=== PATIENT | male | born 1960 | race Caucasian/White ===

== ENCOUNTER 2016-12-19 14:15 | Emergency (ER) | payer SELFPAY ==
[2016-12-19 14:44] VITALS: BP 153/100; PULSE 109; TEMP 99; BMI 28.5
--- NOTE | 2016-12-19 14:51 | PDOC ---
History of Present Illness - General History Source: Patient Exam Limitations: No Limitations - History of Present Illness Initial Comments: 12/19/16 14:54 The patient is a 56 year old male with a significant past medical history of type II diabetes, who presents to the ED with an abscess over the scrotum. Patient states the boil first appeared 10 days ago, and is complaining of increasing pain in the area. Denies contact, shaving, trauma. Denies fever, chills, nausea, vomiting. <Az Hoskins - Last Filed: 12/19/16 14:54> - General History Source: Patient Exam Limitations: No Limitations <Scott Waller - Last Filed: 12/19/16 15:20> - General Chief Complaint: Abscess Boil Stated Complaint: ABSCESS Time Seen by Provider: 12/19/16 14:26 Past History <Az Hoskins - Last Filed: 12/19/16 14:54> - Past Medical History Diabetes: Yes (NO MEDS) - Psycho/Social/Smoking Cessation Hx Anxiety: No Suicidal Ideation: No Smoking History: Current every day smoker Have you smoked in the past 12 months: Yes Number of Cigarettes Smoked Daily: 40 Information on smoking cessation initiated: Yes 'Breaking Loose' booklet given: 02/07/16 Hx Alcohol Use: No Drug/Substance Use Hx: No Substance Use Type: None <Scott Waller - Last Filed: 12/19/16 15:20> - Past Medical History Allergies/Adverse Reactions: Allergies Allergy/AdvReac Type Severity Reaction Status Date / Time No Known Allergies Allergy Verified 12/19/16 14:18 Home Medications: Ambulatory Orders Sulfamethoxazole/Trimethoprim [Bactrim Ds -] 1 tab PO BID #14 tablet 12/19/16 Review of Systems - Review of Systems Able to Perform ROS?: Yes Comments:: 12/19/16 14:55 GENERAL/CONSTITUTIONAL: No fever or chills. No weakness. HEAD, EYES, EARS, NOSE AND THROAT: No change in vision. No ear pain or discharge. No sore throat. CARDIOVASCULAR: No chest pain or shortness of breath. RESPIRATORY: No cough, wheezing, or hemoptysis. GASTROINTESTINAL: No nausea, vomiting, diarrhea or constipation. GENITOURINARY: No dysuria, frequency, or change in urination. MUSCULOSKELETAL: No joint or muscle swelling or pain. No neck or back pain. SKIN: boil over scrotum NEUROLOGIC: No headache, vertigo, loss of consciousness, or change in strength/ sensation. ENDOCRINE: No increased thirst. No abnormal weight change. HEMATOLOGIC/LYMPHATIC: No anemia, easy bleeding, or history of blood clots. ALLERGIC/IMMUNOLOGIC: No hives or skin allergy. <Az Hoskins - Last Filed: 12/19/16 14:54> *Physical Exam - Vital Signs Last Vital Signs Temp Pulse Resp BP Pulse Ox 99.0 F 109 H 18 153/100 96 12/19/16 14:16 12/19/16 14:16 12/19/16 14:16 12/19/16 14:16 12/19/16 14:16 - Physical Exam Comments: 12/19/16 14:55 GENERAL: Awake, alert, and fully oriented, in no acute distress HEAD: No signs of trauma EYES: PERRLA, EOMI, sclera anicteric, conjunctiva clear ENT: Auricles normal inspection, hearing grossly normal, nares patent, oropharynx clear without exudates. Moist mucosa NECK: Normal ROM, supple, no lymphadenopathy, JVD, or masses LUNGS: Breath sounds equal, clear to auscultation bilaterally. No wheezes, and no crackles HEART: Regular rate and rhythm, normal S1 and S2, no murmurs, rubs or gallops ABDOMEN: Soft, nontender, normoactive bowel sounds. No guarding, no rebound. No masses EXTREMITIES: Normal range of motion, no edema. No clubbing or cyanosis. No cords, erythema, or tenderness NEUROLOGICAL: Cranial nerves II through XII grossly intact. Normal speech, normal gait SKIN: 3cm x 3cm abscess induration with overlying skin irritation. Warm, Dry, normal turgor. <Az Hoskins - Last Filed: 12/19/16 14:54> - Vital Signs Last Vital Signs Temp Pulse Resp BP Pulse Ox 99.0 F 109 H 18 153/100 96 12/19/16 14:16 12/19/16 14:16 12/19/16 14:16 12/19/16 14:16 12/19/16 14:16 <Scott Waller - Last Filed: 12/19/16 15:20> ED Treatment Course - RADIOLOGY Radiology Studies Ordered: Category Date Time Status SCROTUM AND CONTENTS US [US] Stat Ultrasound 12/19/16 14:39 Ordered <Scott Waller - Last Filed: 12/19/16 15:20> Medical Decision Making - Medical Decision Making 12/19/16 15:06 A portion of this note was documented by scribe services under my direction. I have reviewed the details of the note, within reason, and agree with the documentation with the following case summary and management plan written by me. Patient treated in the ED. Nursing notes are reviewed and incorporated into the medical decision-making. Vital signs reviewed. Peripheral IV access obtained by the nurse, laboratory studies are drawn and sent, reviewed and interpreted by myself. Vital Signs Temp Pulse Resp BP Pulse Ox 99.0 F 109 H 18 153/100 96 12/19/16 14:16 12/19/16 14:16 12/19/16 14:16 12/19/16 14:16 12/19/16 14:16 56 year old male with no past medical history presents with left sided scrotal abscess. Reported that the boil had occurred ~10 days ago and has been persisted and increasing in size. Denies fevers. Denies dysuria. Denies injury. Came into the ED for further evaluation. I had initially ordered a scrotal ultrasound. However, after waiting for the ultrasound, the patient prefers to go home and see his urololgist tomorrow. He has scheduled an appointment with DR. Raymundo. Given that the symptoms have been persistent for 10 days, will initiate bactrim and allow the patient to see the urologist tomorrow. Return precautions were given if he was unable to see them. I discussed the physical exam findings, ancillary test results and final diagnoses with the patient. I answered all of the patient's questions. The patient was satisfied with the care received and felt comfortable with the discharge plan and treatment plan. The patient will call their primary care physician within 24 hours to arrange follow-up and will return to the Emergency Department with any new, persistant or worsening symptoms. <Scott Waller - Last Filed: 12/19/16 15:20> *DC/Admit/Observation/Transfer - Attestations Scribe Attestion: 12/19/16 14:55 Documentation prepared by Az Hoskins, acting as medical surgical tech for Scott Waller MD, MD. <Az Hoskins - Last Filed: 12/19/16 14:54> - Discharge Dispostion Admit: No <Scott Waller - Last Filed: 12/19/16 15:20> Diagnosis at time of Disposition: Scrotal pain - Discharge Dispostion Disposition: HOME Condition at time of disposition: Good - Prescriptions Prescriptions: Sulfamethoxazole/Trimethoprim [Bactrim Ds -] 1 tab PO BID #14 tablet - Referrals Referrals: Leroy Raymundo MD., [Staff Physician] - Dory Contreras MD [Staff Physician] - Ryan Cantu MD [Staff Physician] - - Patient Instructions Printed Discharge Instructions: DI for Scrotal Abscess Additional Instructions: At this time, you have deferred the ultrasound at this time. Given that the symptoms have been going on for over a week and a half, we will initiate antibiotics, Bactrim 1 tablet every 12 hours for the next week. It is very very important that you follow-up with urologist either today or tomorrow. Please call schedule appointment. You may take 600 mg of ibuprofen every 6 hours needed for pain. If you're unable to secure urologist, please return to the ED for further evaluation.
[2016-12-19] MEDS ORDERED: IBUPROFEN 600 MG TABLET (FP) PO ONE ×2 (15:02→15:08)
[2016-12-19] MEDS ORDERED: SULFAMETHOXAZOLE/TRIMETHOPRIM 800MG/160MG D.S. TABLET PO ONE (15:06)
[2016-12-19] MEDS ORDERED: SULFAMETHOXAZOLE/TRIMETHOPRIM 800MG/160MG D.S. TABLET ONE (15:08)
== END 2016-12-19 15:21 | disposition home or self-care (01) ==
LOC: FER 14:15
DX: N50.82 Scrotal pain (principal); E11.9 Type 2 diabetes mellitus without complications; F17.210 Nicotine dependence, cigarettes, uncomplicated
CPT/HCPCS: 99281-25

== ENCOUNTER 2017-04-23 19:18 | Emergency (ER) | payer SELFPAY ==
[2017-04-23 19:24] VITALS: BP 140/90; PULSE 82; TEMP 98.2; BMI 27.1
--- NOTE | 2017-04-23 19:47 | PDOC ---
History of Present Illness - General History Source: Patient Exam Limitations: No Limitations - History of Present Illness Initial Comments: 04/23/17 20:08 The patient 56 year old male, with significant past medical history of diabetes , who presents to the emergency room complaining of 5 days of an itchy, painful rash on his head. He noticed what he thought was a pimple on his head the day after getting a haircut. The rash started to spread over the top of his head over the past couple of days. He used T-gel shampoo and and Selsun blue without relief. Denies fever, chills, nausea, vomiting. Denies any rashes on his extremities or trunk. Denies recent illness. Allergies: none <Cely Hernandez - Last Filed: 04/23/17 20:24> <Nikki Nieto - Last Filed: 04/24/17 06:22> - General Chief Complaint: Pain, Acute Stated Complaint: RASH IN HEAD Time Seen by Provider: 04/23/17 19:30 Past History <Cely Hernandez - Last Filed: 04/23/17 20:24> - Past Medical History Diabetes: Yes (NO MEDS) - Psycho/Social/Smoking Cessation Hx Anxiety: No Suicidal Ideation: No Smoking History: Current every day smoker Have you smoked in the past 12 months: Yes Number of Cigarettes Smoked Daily: 40 Information on smoking cessation initiated: Yes 'Breaking Loose' booklet given: 02/07/16 Hx Alcohol Use: No Drug/Substance Use Hx: No Substance Use Type: None <Nikki Nieto - Last Filed: 04/24/17 06:22> - Past Medical History Allergies/Adverse Reactions: Allergies Allergy/AdvReac Type Severity Reaction Status Date / Time No Known Allergies Allergy Verified 04/23/17 19:20 Home Medications: Ambulatory Orders Cephalexin Monohydrate [Keflex -] 500 mg PO Q8H #15 capsule 04/23/17 Clobetasol Propionate [Clodan] 10 ml TP DAILY #118 ml 04/23/17 Review of Systems - Review of Systems Able to Perform ROS?: Yes Comments:: 04/23/17 20:08 CONSTITUTIONAL: Absent: fever, no chills, no fatigue EYES: Absent: visual changes ENT: Absent: ear pain, no sore throat CARDIOVASCULAR: Absent: chest pain, no palpitations RESPIRATORY: Absent: cough, no SOB GI: Absent: abdominal pain, no nausea, no vomiting, no constipation, no diarrhea GENITOURINARY: Absent: dysuria, no frequency, no hematuria MUSCULOSKELETAL: Absent: back pain, no arthralgia, no myalgia SKIN: Present: itchy painful rash on top of the head x5 days NEURO: Absent: headache <MaryCely - Last Filed: 04/23/17 20:24> *Physical Exam - Vital Signs Last Vital Signs Temp Pulse Resp BP Pulse Ox 98.2 F 82 18 140/90 97 04/23/17 19:21 04/23/17 19:21 04/23/17 19:21 04/23/17 19:21 04/23/17 19:21 - Physical Exam Comments: 04/23/17 20:24 GENERAL: The patient is awake, alert, and fully oriented, in no acute distress. ENT: Ears normal, nares patent, oropharynx clear without exudates. Moist mucous membranes. EXTREMITIES: Normal range of motion, no edema. No clubbing or cyanosis. No cords, erythema, or tenderness. NEUROLOGICAL: Cranial nerves II through XII grossly intact. Normal speech, normal gait. PSYCH: Normal mood, normal affect. SKIN: +6 scattered, mildly tender, erythematous, 1cm lesions of the bilateral aspects of the vertex of the scalp. Non fluctuant. No other lesions, open wounds present. No general erythema or edema of scalp. No posterior cervical lymphadenopathy. No other obvious rash present. <MaryCely - Last Filed: 04/23/17 20:24> - Vital Signs Last Vital Signs Temp Pulse Resp BP Pulse Ox 98.2 F 82 18 140/90 97 04/23/17 19:21 04/23/17 19:21 04/23/17 19:21 04/23/17 19:21 04/23/17 19:21 <Nikki Nieto - Last Filed: 04/24/17 06:22> ED Treatment Course - Medications Given in the ED: ED Medications Discontinued Medications Generic Name Dose Route Start Last Admin Trade Name Freq PRN Reason Stop Dose Admin Cephalexin HCl 500 mg 04/23/17 19:48 04/23/17 19:59 Keflex - PO 04/23/17 19:49 500 mg ONCE ONE Administration <Cely Hernandez - Last Filed: 04/23/17 20:24> Medical Decision Making - Medical Decision Making Documentation has been prepared under my direction and personally reviewed by me in its entirety. I attest that this documented accurately reflects all work, treatment, procedures and medical decision making performed by me. As noted above, this 56-year-old man without history of immunocompromise/wound healing problems/resistant organism colonization or infection presents with several scattered pruritic and uncomfortable crusted lesions of his scalp. There are on the lateral aspects of the vertex and started after he had a haircut. He did not think the started as insect bites. He has no previous history of multiple furuncles. He has 1 previous history of perianal abscess that it needed to be drained but no other abscesses or cellulitis. Patient states that he has been scratching the "scabs" from the lesions. There has been no significant amount of purulent discharge. He denies fever/chills or other symptoms suggestive of systemic infection. Exam as noted. Patient has multiple lesions consistent with furuncles of his scalp. Although the origin of these lesions is unclear, there is significant amount of erythema at the base of each one with mild to moderate tenderness. There is no evidence of fluctuance of any of the lesions or generalized scalp cellulitis . Patient will be treated with Keflex 500 mg now and prescription for 500 mg 3 times a day for 5 days will be issued to his pharmacy. In order to control the patient's pruritus, clobetasol shampoo should be used daily; prescription for this was also sent to his pharmacy. Patient does not have a spa assistant manager. He will be given Dr. Marita Welch's referral information. He should call her office tomorrow to make an appointment within the next 10 days. He should return to the ER if he has worsening pain/swelling/redness of his scalp or if he develops fever/chills. <Nikki Nieto - Last Filed: 04/24/17 06:22> *DC/Admit/Observation/Transfer - Attestations Scribe Attestion: 04/23/17 20:09 Documentation prepared by CALOS Dawson, acting as senior medical director for Nikki Nieto MD. <Cely Hernandez - Last Filed: 04/23/17 20:24> <GersonJohnNikki J - Last Filed: 04/24/17 06:22> Diagnosis at time of Disposition: Furuncle of scalp - Discharge Dispostion Disposition: HOME Condition at time of disposition: Stable - Prescriptions Prescriptions: Clobetasol Propionate [Clodan] 10 ml TP DAILY #118 ml Cephalexin Monohydrate [Keflex -] 500 mg PO Q8H #15 capsule - Referrals Referrals: Marita Welch [Staff Physician] - Call tomorrow - Patient Instructions Printed Discharge Instructions: Smoking Cessation, DI for Boils Additional Instructions: Keflex 500 mg 3 times a day for 5 days Clobetasol shampoo daily Bacitracin ointment daily to sores Call Dr. Welhc's(spa assistant manager) office tomorrow to arrange follow-up appointment within the next 10 days Follow-up with general doctor within one week Return to ER if you have increased swelling/pain/drainage from sores or develops fever/chills
[2017-04-23] MEDS ORDERED: CEPHALEXIN MONOHYDRATE 500 MG CAPSULE (UD) PO ONE (19:48)
[2017-04-23] MEDS ORDERED: CEPHALEXIN MONOHYDRATE 500 MG CAPSULE (UD) ONE (19:56)
[2017-04-23] MEDS ORDERED: FLUOCINONIDE 0.05% TOPICAL SOLUTION (60 ML BOTTLE) TP SCH (22:00)
== END 2017-04-23 20:18 | disposition home or self-care (01) ==
LOC: FER 19:18
DX: L02.821 Furuncle of head [any part, except face] (principal); E11.9 Type 2 diabetes mellitus without complications; F17.210 Nicotine dependence, cigarettes, uncomplicated
CPT/HCPCS: 99281-25

== ENCOUNTER 2021-03-20 16:33 | Emergency (ER) | payer OTHER ==
[2021-03-20 16:58] VITALS: PULSE 80; TEMP 98.1; BMI 32.5
[2021-03-20 17:43] VITALS: BP 142/90
== END 2021-03-20 17:26 | disposition home or self-care (01) ==
LOC: FER 16:33
DX: E11.9 Type 2 diabetes mellitus without complications (principal)
CPT/HCPCS: 99283-25

== ENCOUNTER 2021-04-18 12:18 | Emergency (ER) | payer OTHER ==
[2021-04-18 12:30] VITALS: BP 160/101; PULSE 97; TEMP 97.8; BMI 32.1
== END 2021-04-18 12:57 | disposition home or self-care (01) ==
LOC: FER 12:18
DX: Z76.0 Encounter for issue of repeat prescription (principal)
CPT/HCPCS: 99281-25